=== PATIENT | female | born 1990 | race Caucasian/White ===

== ENCOUNTER → 2021-01-18 | Outpatient (CLI) | payer OTHER ==
--- NOTE | 2021-01-18 12:43 | RAD ---
EXAM: Thyroid sonogram. HISTORY: Hyperthyroidism. Weight loss. TECHNIQUE: Sonographic imaging of the thyroid was performed. COMPARISON: None. FINDINGS: The right thyroid lobe measures 4.5 x 1.2 x 1.3 cm. The left thyroid lobe measures 4.7 x 1. 5 x 1.0 cm. The thyroid isthmus measures 2.3 mm. The thyroid nodule or cyst is seen. There is normal thyroid parenchymal blood flow. IMPRESSION: Unremarkable thyroid sonogram. Electronically signed by: Mimi Dunlap MD (01/18/2021 12:41 PM) [id number]
== END ==
LOC: US 11:25
DX: H53.8 Other visual disturbances (principal); R63.4 Abnormal weight loss; Z86.39 Personal history of other endocrine, nutritional and metabolic disease
CPT/HCPCS: 76536